=== PATIENT | male | born 1955 | race Caucasian/White ===

== ENCOUNTER 2019-04-18 07:14 | Day surgery (SDC) | payer OTHER ==
[~2019-04-18] VITALS: Ht 175.3 cm; Wt 86.4 kg
[2019-04-18] VITALS (13 sets, daily range): BP systolic 112–160; BP diastolic 67–90; PULSE 51–80; RESP 15–21; Ht 175.3 cm; Wt 86.4 kg
[2019-04-18] MEDS ORDERED: SOD CHLORIDE 0.9% 1,000 ML IV SCH (10:00)
--- NOTE | 2019-04-18 10:25 | PREAC ---
Date/Time of Note Date/Time of Note DATE: 04/18/19 TIME: 10:23 Anesthesia Eval and Record Evaluation Time Pre-Procedure Interview DATE: 04/18/19 TIME: 10:23 Age 64 Sex male NPO: 8 hrs Preoperative diagnosis Hemorrhoids Planned procedure Hemorrhoidectomy Past Medical History Past Medical History: Includes Cardio: HTN Endo: Diabetes Surgery & Anesthesia Issues No known issue Meds Anticoagulation: No Beta Erick within 24 hr: No Reason Beta Erick not given: Pt. not on B-Erick No Active Prescriptions or Reported Meds Current Medications Sodium Chloride 1,000 ml @ 75 mls/hr [id number] IV ; Start 04/18/19 at 10:00 Meds reviewed: Yes Allergies Coded Allergies: No Known Allergy (Unverified , 04/18/19) Allergies Reviewed: Yes Labs/Studies Labs Reviewed: Reviewed by anesthesiologist test: N/A Pre-procedure Exam Last vitals Vital Signs Date Temp Pulse Resp B/P (MAP) Pulse Ox O2 O2 Flow FiO2 Time Delivery Rate 04/18/19 97.7 62 16 160/90 98 Room Air 09:42 (113) Airway: Adequate mouth opening Mallampati: Mallampati I Teeth: Normal Lung: Normal Heart: Normal ASA Physical Status ASA physical status: 2 Emergency: None Planned Anesthetic General/MAC: ETT Planned Pain Management Parenteral pain med Pre-operative Attestations Prior to commencing anesthesia and surgery, the patient was re-evaluated, there was verification of: *The patient's identity *The results of appropriate recent lab work and preoperative vital signs *The above evaluation not changing prior to induction *Anesthetic plan, risk benefits, alternative and complications discussed with patient/family; questions answered; patient/family understands, accepts and wishes to proceed. DYLON DIAZ MD Apr 18, 2019 10:25
[2019-04-18] MEDS ORDERED: ROCURONIUM 50 MG INJ ONE (10:31)
[2019-04-18] MEDS ORDERED: SUCCINYLCHOLINE CHLORIDE 100 MG/5 ML SYG IV ONE (10:31)
[2019-04-18] MEDS ORDERED: PROPOFOL 20 ML ONE (10:31)
[2019-04-18] MEDS ORDERED: NEOSTIGMINE 3 MG/3 ML SYRINGE ONE ×2 (10:31→11:05)
[2019-04-18] MEDS ORDERED: LIDOCAINE 2% (SDV) 5 ML INJ ONE (10:31)
[2019-04-18] MEDS ORDERED: GLYCOPYRROLATE 0.4 MG INJ ONE ×3 (10:31→11:05)
[2019-04-18] MEDS ORDERED: MEPERIDINE 100 MG INJ ONE (10:33)
[2019-04-18] MEDS ORDERED: CEFAZOLIN 1 GM INJ ONE (10:59)
[2019-04-18] MEDS ORDERED: ATROPINE 1 MG/10 ML SYRINGE ONE (11:05)
[2019-04-18] MEDS ORDERED: BUPIVACAINE 0.25%/EPI (SDV) 30 ML INJ ONE (11:05)
[2019-04-18] MEDS ORDERED: BUPIVACAINE 0.25%/EPI (SDV) 30 ML INJ INJ ONE (11:10)
[2019-04-18] MEDS ORDERED: hydrALAzine 20 MG INJ IV PRN (11:30)
[2019-04-18] MEDS ORDERED: ONDANSETRON 4 MG INJ IV PRN (11:30)
[2019-04-18] MEDS ORDERED: MIDAZOLAM 1 MG/ML 2 ML INJ IV PRN (11:30)
[2019-04-18] MEDS ORDERED: FENTAnyl 50 MCG/ML VIAL IV PRN ×3 (11:30)
[2019-04-18] MEDS ORDERED: DIPHENHYDRAMINE 50 MG INJ IV PRN (11:30)
[2019-04-18] MEDS ORDERED: MEPERIDINE 25 MG INJ IV PRN (11:30)
[2019-04-18] MEDS ORDERED: METOCLOPRAMIDE 10 MG INJ IV PRN (11:30)
[2019-04-18] MEDS ORDERED: EPHEDrine 25 MG/5 ML SYG IV PRN (11:30)
[2019-04-18] MEDS ORDERED: HYDROmorphONE 1 MG/5 ML IV SYRINGE IV PRN ×3 (11:30)
[2019-04-18] MEDS ORDERED: LABETALOL HCL 20MG INJ IV PRN (11:30)
--- NOTE | 2019-04-18 11:35 | SIPON ---
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
--- NOTE | 2019-04-18 12:44 | PAC ---
Date/Time of Note Date/Time of Note DATE: 04/18/19 TIME: 12:44 Post-Anesthesia Notes Post-Anesthesia Note Last documented vital signs Vital Signs Date Temp Pulse Resp B/P (MAP) Pulse Ox O2 O2 Flow FiO2 Time Delivery Rate 04/18/19 52 18 118/73 96 Room Air 12:26 (88) 04/18/19 98.1 11:39 Activity: WNL Respiratory function: WNL Cardiovascular function: WNL Mental status: Baseline Pain reasonably controlled: Yes Hydration appropriate: Yes Nausea/Vomiting absent: Yes Comments BT: 98.6 DYLON DIAZ MD Apr 18, 2019 12:44
--- NOTE | 2019-04-18 14:26 | OPR ---
DATE OF OPERATION: 04/18/2019 PREOPERATIVE DIAGNOSIS: Symptomatic hemorrhoids, rule out other. POSTOPERATIVE DIAGNOSIS: Symptomatic hemorrhoids, rule out other. OPERATION PERFORMED: Anal exam under anesthesia, rigid sigmoidoscopy and hemorrhoidectomy. ANESTHESIA: General. ANESTHESIOLOGIST: Scotty Hatch MD SURGEON: Talib Shaikh MD SHADING PAINTER: None. INDICATIONS FOR PROCEDURE: The patient is a 64-year-old male who presented with several previous epi sodes of bright red blood per rectum more pronounced with bowel movements. He was examined in the of fice. No definite findings were identified. He was then counseled as to the benefit of anal exam un paulie anesthesia and possible hemorrhoidectomy. He consented and was scheduled for surgery. DESCRIPTION OF PROCEDURE: The patient was brought to the operating theater, placed under general ane sthesia. He was then put in the prone jackknife position. The buttocks were widely shaved, taped, p repped and draped in the usual sterile fashion. A digital exam of the anal canal did not reveal evid ence of mass. There was no obvious external hemorrhoids noted. Rigid sigmoidoscopy was then perform ed, there was no evidence of additional pathology within the rectum. The sigmoidoscope was then with drawn and the anal retractors were placed 360-degree inspection of the anal canal took place. There was only one moderately sized hemorrhoid in the right posterior location. This hemorrhoid was graspe d with a [place] clamp and then resected using the LigaSure device and sent for permanent pathologic analysis. The area was then infiltrated with 0.5% Marcaine local anesthetic with epinephrine, and th is concluded the procedure. The anal retractors were removed, and the patient was then transported i n stable condition to the recovery room. The patient tolerated the procedure well. The estimated bl ood loss was 5 mL. There were no complications and the patient was transported in stable condition t o the recovery room. Dictated By: TALIB SHAIKH MD TL/SILVIA Conf#: [id number] DID#: [id number]
== END 2019-04-18 18:12 | disposition home or self-care (01) ==
LOC: SDS 07:14
PROVIDERS: ATTEND Surgery Surgical Oncology
DX: K64.8 Other hemorrhoids (principal); I10 Essential (primary) hypertension; E11.9 Type 2 diabetes mellitus without complications
CPT/HCPCS: 45330; 46255; 82962; J0461; J0690; J1170; J2175; J2405; J2710; Z7610; 88304